=== PATIENT | female | born 1950 | race Native Hawaiian/Other Pacific Islander ===

== ENCOUNTER 2024-04-17 02:58 | Inpatient (IN) | payer MEDICARE ==
--- NOTE | 2024-04-17 04:05 | ED ---
General Adult HPI - General Chief complaint: Dizziness Stated complaint: Dizziness Time Seen by Provider: 04/17/24 03:05 Source: patient, RN notes reviewed, old records reviewed Mode of arrival: EMS Limitations: no limitations - History of Present Illness Initial comments: 73-year-old female presenting with worsening lightheadedness, gait instability. Patient states this has been an ongoing symptom for many months and she has received workup at [facility]. She states that there was no specific cause identified. She states that her symptoms are worsening and she is unsteady on her feet and unable to current to live in her current living situation. She currently lives with her brother and states that he is not well himself. She denies fever. Denies chest pain. Denies vomiting. Denies focal numbness or weakness. Denies headache. - Related Data Home Medications Medication Instructions Recorded Confirmed Lisinopril-Hctz 20-25 mg 25 mg PO DAILY 11/26/13 12/02/16 [Zestoretic 20-25] Metoprolol Succinate [Toprol XL] 50 mg PO DAILY 11/26/13 12/02/16 amLODIPine BESYLATE [Norvasc] 5 mg PO DAILY 11/26/13 12/02/16 glipiZIDE [Glucotrol XL] 5 mg PO DAILY 11/26/13 12/02/16 metFORMIN HCL [Glucophage] 500 mg PO DAILY 11/26/13 12/02/16 predniSONE 5 mg PO DAILY 11/26/13 12/02/16 Omeprazole [PriLOSEC] 20 mg PO AC-BRKFST 06/04/14 12/02/16 Allergies Allergy/AdvReac Type Severity Reaction Status Date / Time Penicillins Allergy Rash/Hives Verified 12/02/16 14:11 Review of Systems ROS Statement: Those systems with pertinent positive or pertinent negative responses have been documented in the HPI. ROS Other: All systems not noted in ROS Statement are negative. Past Medical History Past Medical History: Diabetes Mellitus, Hypertension, Supraventricular Tachycardia (SVT) Additional Past Medical History / Comment(s): L and R breast biopsy, dentures, arthritis, pain legs and hands History of Any Multi-Drug Resistant Organisms: None Reported Past Surgical History: Cholecystectomy Additional Past Surgical History / Comment(s): L and R foot surgery Past Anesthesia/Blood Transfusion Reactions: No Reported Reaction Past Psychological History: No Psychological Hx Reported Past Alcohol Use History: Occasional Past Drug Use History: None Reported General Exam Limitations: no limitations General appearance: alert, in no apparent distress Head exam: Present: atraumatic, normocephalic Eye exam: Present: normal appearance, PERRL ENT exam: Present: mucous membranes dry Neck exam: Present: normal inspection. Absent: tenderness, meningismus Respiratory exam: Present: normal lung sounds bilaterally. Absent: respiratory distress, wheezes Cardiovascular Exam: Present: regular rate, normal rhythm GI/Abdominal exam: Present: soft. Absent: distended, tenderness Extremities exam: Present: normal inspection, normal capillary refill Neurological exam: Present: alert, oriented X3, CN II-XII intact. Absent: motor sensory deficit Skin exam: Present: warm, dry, intact. Absent: cyanosis, diaphoretic Course Vital Signs 04/17/24 03:11 Temperature 97.7 F Pulse Rate 79 Respiratory 20 Rate Blood Pressure 157/69 O2 Sat by Pulse 99 Oximetry Medical Decision Making - Medical Decision Making Was pt. sent in by a medical professional or institution ([facility]OTT Ma, [employer] SUPERVISOR, urgent care, hospital, or retirement...) When possible be specific @ -No Did you speak to anyone other than the patient for history (EMS, parent, family, police, friend...)? What history was obtained from this source @ -No Did you review nursing and triage notes (agree or disagree)? Why? @ -I reviewed and agree with nursing and triage notes Were old charts reviewed (outside hosp., previous admission, EMS record, old EKG, old radiological studies, urgent care reports/EKG's, retirement records)? Report findings @ -No old charts were reviewed Differential Syncope: Valvular disease, hypertrophic cardiomyopathy, pulmonary embolism, tamponade, tachycardia, bradycardia, VA, hypovolemia, hemorrhage, dissection, anemia, intracranial hemorrhage, seizure, hypoglycemia, carbon monoxide poisoning, this is not meant to be an all-inclusive list. EKG interpreted by me (3pts min.). @ -Sinus rhythm with PVC rate of 94, KY interval 148, QRS duration 69, QTc [address] segment elevation. X-rays interpreted by me (1pt min.). @ -None done CT interpreted by me (1pt min.). @ -None done U/S interpreted by me (1pt. min.). @ -None done What testing was considered but not performed or refused? (CT, X-rays, U/S, labs)? Why? @ -None What meds were considered but not given or refused? Why? @ -None Did you discuss the management of the patient with other professionals (professionals i.e. , PA, MOLD YARN SUPERVISOR, lab, RT, psych nurse, social group worker, retrimmer, teacher, retail loss prevention officer, case making machine operator)? Give summary @[facility] Was smoking cessation discussed for >3mins.? @ -No Was critical care preformed (if so, how long)? @ -No Were there social determinants of health that impacted care today? How? (Homelessness, low income, unemployed, alcoholism, drug addiction, transportation, low edu. Level, literacy, decrease access to med. care, [facility], rehab)? @ -No Was there de-escalation of care discussed even if they declined (Discuss DNR or withdrawal of care, Hospice)? DNR status @ -No What co-morbidities impacted this encounter? (DM, HTN, Smoking, COPD, CAD, Cancer, CVA, ARF, Chemo, Hep., AIDS, mental health diagnosis, sleep apnea, morbid obesity)? @ -None Was patient admitted / discharged? Hospital course, mention meds given and route, prescriptions, significant lab abnormalities, going to OR and other pertinent info. @ -73-year-old female currently living alone with persistent dizziness, gait instability, states she feels like she is going to pass out. She is in sinus rhythm with stable vitals. She has normal CBC and normal CMP, negative troponin, urinalysis is pending. Patient states she cannot be home in her current living situation she is requesting admission. Patient is admitted for further evaluation. Case discussed with Raheem alatorre for [facility]. Undiagnosed new problem with uncertain prognosis? @ -No Drug Therapy requiring intensive monitoring for toxicity (Heparin, Nitro, Insulin, Cardizem)? @ -No Were any procedures done? @ -No Diagnosis/symptom? @ -Near syncope, gait instability Acute, or Chronic, or Acute on Chronic? @ -Default Uncomplicated (without systemic symptoms) or Complicated (systemic symptoms)? @ -Default Side effects of treatment? @ -No Exacerbation, Progression, or Severe Exacerbation? @ -No Poses a threat to life or bodily function? How? (Chest pain, USA, VA, pneumonia, PE, COPD, DKA, ARF, appy, cholecystitis, CVA, Diverticulitis, Homicidal, Suicidal, threat to staff... and all critical care pts) @ -No - Lab Data Result diagrams: 04/17/24 04:23 04/17/24 04:23 Lab Results 04/17/24 04/17/24 04/17/24 Range/Units 04:23 04:23 04:23 WBC 6.5 (3.8-10.6) k/uL RBC 5.30 (3.80-5.40) m/uL Hgb 11.6 (11.4-16.0) gm/dL Hct 38.9 (34.0-46.0) % MCV 73.4 L (80.0-100.0) fL MCH 21.9 L (25.0-35.0) pg MCHC 29.9 L (31.0-37.0) g/dL RDW 15.9 H (11.5-15.5) % Plt Count 332 (150-450) k/uL MPV 6.9 Neutrophils % 65 % Lymphocytes % 22 % Monocytes % 10 % Eosinophils % 1 % Basophils % 1 % Neutrophils # 4.2 (1.3-7.7) k/uL Lymphocytes # 1.4 (1.0-4.8) k/uL Monocytes # 0.6 (0-1.0) k/uL Eosinophils # 0.1 (0-0.7) k/uL Basophils # 0.0 (0-0.2) k/uL Hypochromasia Marked Microcytosis Slight PT 10.1 (10.0-12.5) sec INR 0.9 (<1.2) APTT 24.6 (22.0-30.0) sec Sodium 135 L (137-145) mmol/L Potassium 3.5 (3.5-5.1) mmol/L Chloride 102 (98-107) mmol/L Carbon Dioxide 24 (22-30) mmol/L Anion Gap 9 mmol/L BUN 21 H (7-17) mg/dL Creatinine 0.79 (0.52-1.04) mg/dL Est GFR (CKD-EPI)AfAm 85 (>60 ml/min/1.73 sqM) Est GFR (CKD-EPI)NonAf 74 (>60 ml/min/1.73 sqM) Glucose 90 (74-99) mg/dL Calcium 9.9 (8.4-10.2) mg/dL Magnesium 1.7 (1.6-2.3) mg/dL Total Bilirubin 0.6 (0.2-1.3) mg/dL AST 42 H (14-36) U/L ALT 36 H (4-34) U/L Alkaline Phosphatase 58 (38-126) U/L Troponin I (0.000-0.034) ng/mL Total Protein 7.5 (6.3-8.2) g/dL Albumin 5.0 (3.5-5.0) g/dL 04/17/24 Range/Units 04:23 WBC (3.8-10.6) k/uL RBC (3.80-5.40) m/uL Hgb (11.4-16.0) gm/dL Hct (34.0-46.0) % MCV (80.0-100.0) fL MCH (25.0-35.0) pg MCHC (31.0-37.0) g/dL RDW (11.5-15.5) % Plt Count (150-450) k/uL MPV Neutrophils % % Lymphocytes % % Monocytes % % Eosinophils % % Basophils % % Neutrophils # (1.3-7.7) k/uL Lymphocytes # (1.0-4.8) k/uL Monocytes # (0-1.0) k/uL Eosinophils # (0-0.7) k/uL Basophils # (0-0.2) k/uL Hypochromasia Microcytosis PT (10.0-12.5) sec INR (<1.2) APTT (22.0-30.0) sec Sodium (137-145) mmol/L Potassium (3.5-5.1) mmol/L Chloride (98-107) mmol/L Carbon Dioxide (22-30) mmol/L Anion Gap mmol/L BUN (7-17) mg/dL Creatinine (0.52-1.04) mg/dL Est GFR (CKD-EPI)AfAm (>60 ml/min/1.73 sqM) Est GFR (CKD-EPI)NonAf (>60 ml/min/1.73 sqM) Glucose (74-99) mg/dL Calcium (8.4-10.2) mg/dL Magnesium (1.6-2.3) mg/dL Total Bilirubin (0.2-1.3) mg/dL AST (14-36) U/L ALT (4-34) U/L Alkaline Phosphatase (38-126) U/L Troponin I <0.012 (0.000-0.034) ng/mL Total Protein (6.3-8.2) g/dL Albumin (3.5-5.0) g/dL Disposition Clinical Impression: Near syncope, Gait instability Disposition: ADMITTED IP TO THIS HOSP Condition: Stable Is patient prescribed a controlled substance at d/c from ED?: No Referrals: Solitario Lewis MD [Primary Care Provider] - 1-2 days Time of Disposition: 05:50
[2024-04-17 05:08] LABS: Basophils % (A) 1 %; Eosinophils # (A) 0.1 k/uL (0-0.7); Eosinophils % (A) 1 %; HCT 38.9 % (34.0-46.0); HGB 11.6 gm/dL (11.4-16.0); Hypochromasia Marked; Lymphocytes # (A) 1.4 k/uL (1.0-4.8); Lymphocytes % (A) 22 %; MCH 21.9 pg (25.0-35.0); MCHC 29.9 g/dL (31.0-37.0); MCV 73.4 fL (80.0-100.0); Mean Platelet Volume 6.9; Microcytosis Slight; Monocytes # (A) 0.6 k/uL (0-1.0); Monocytes % (A) 10 %; Neutrophils # (A) 4.2 k/uL (1.3-7.7); Neutrophils % (A) 65 %; Platelet Count 332 k/uL (150-450); RDW 15.9 % (11.5-15.5); WBC 6.5 k/uL (3.8-10.6)
[2024-04-17 05:17] LABS: ALT 36 U/L (4-34); AST 42 U/L (14-36); African American GFR (CKD) 85 (>60 ml/min/1.73 sqM); Alkaline Phosphatase 58 U/L (38-126); Anion Gap 9 mmol/L; Blood Urea Nitrogen 21 mg/dL (7-17); Calcium 9.9 mg/dL (8.4-10.2); Carbon Dioxide 24 mmol/L (22-30); Chloride 102 mmol/L (98-107); Glucose 90 mg/dL (74-99); Magnesium 1.7 mg/dL (1.6-2.3); Non-African American GFR(CKD) 74 (>60 ml/min/1.73 sqM); Potassium 3.5 mmol/L (3.5-5.1); Sodium 135 mmol/L (137-145); Total Bilirubin 0.6 mg/dL (0.2-1.3); Total Protein 7.5 g/dL (6.3-8.2)
[2024-04-17 05:25] LABS: INR 0.9 (<1.2); Partial Thromboplastin Time 24.6 sec (22.0-30.0); Prothrombin Time 10.1 sec (10.0-12.5)
[2024-04-17] MEDS ORDERED: ACETAMINOPHEN TAB 325 MG TAB PO PRN (05:45)
[2024-04-17] MEDS ORDERED: NALOXONE 0.4 MG/ML 1 ML VIAL IV PRN (05:45)
[2024-04-17] MEDS: SODIUM CHLORIDE 0.9% 1,000 ML IV SCH (06:49)
[2024-04-17] MEDS: SODIUM CHLORIDE 0.9% 500 ML 500 ML IV ONE (06:50)
[2024-04-17] MEDS: MECLIZINE 12.5 MG TAB PO STA (06:51)
[2024-04-17 07:10] LABS: Amorphous Sediment,Urine Rare /hpf; Appearance,Urine Clear (Clear); Bacteria,Urine Rare /hpf; Bilirubin,Urine Negative (Negative); Blood,Urine Trace (Negative); Color,Urine Colorless; Glucose,Urine (UA) Negative (Negative); Hyaline Casts,Urine 1 /lpf (0-2); Ketones,Urine Negative (Negative); Leukocyte Esterase,Urine Trace (Negative); Mucus,Urine Rare /hpf; Nitrite,Urine Negative (Negative); Protein,Urine Negative (Negative); RBC,Urine 6 /hpf (0-5); Specific Gravity,Urine 1.009 (1.001-1.035); Squamous Epithelial Cell,Urine 1 /hpf (0-4); Urobilinogen,Urine <2.0 mg/dL (<2.0); WBC,Urine 2 /hpf (0-5)
[2024-04-17] MEDS ORDERED: DEXTROSE 50% SYRINGE 50 ML IVP PRN ×2 (09:40)
[2024-04-17] MEDS: amLODIPine 10 MG TAB PO SCH (10:10)
[2024-04-17 10:22] LABS: Glucose,Whole Blood 67 mg/dL (70-110)
[2024-04-17 12:32] LABS: Glucose,Whole Blood 96 mg/dL (70-110)
[2024-04-17] MEDS: INSULIN ASPART (NovoLOG) 100 UNIT/ML VIAL SQ SCH (12:43)
[2024-04-17] MEDS ORDERED: IOPAMIDOL CONTRAST (ORAL USE) VIAL PO PRN (13:46)
--- NOTE | 2024-04-17 14:08 | XR ---
EXAMINATION TYPE: XR chest 1V portable DATE OF EXAM: 04/17/2024 2:02 PM CLINICAL INDICATION: Female, 73 years old with history of chf; COMPARISON: None TECHNIQUE: XR chest 1V portable Frontal view of the chest. FINDINGS: Lungs/Pleura: There is no evidence of pleural effusion, focal consolidation, or pneumothorax. Pulmonary vascularity: Unremarkable. Heart/mediastinum: Cardiomediastinal silhouette is unremarkable. Musculoskeletal: Degenerative changes of the shoulder joints. IMPRESSION: No acute cardiopulmonary disease/process. [facility], , 04/17/2024 2:05 PM
--- NOTE | 2024-04-17 15:56 | US ---
EXAMINATION TYPE: US carotid duplex BILAT DATE OF EXAM: 04/17/2024 COMPARISON: NONE CLINICAL INDICATION: Female, 73 years old with history of syncope; Syncope per order. Hypertension, p rior smoker, diabetes. TECHNIQUE: Carotid duplex ultrasound examination. Indirect Doppler criteria was utilized. FINDINGS: EXAM MEASUREMENTS: RIGHT: Peak Systolic Velocity (PSV) cm/sec ----- Right CCA: 69.1 ----- Right ICA: 108.2 ----- Right ECA: 65.8 ICA/CCA ratio: 1.6 RIGHT: End Diastole cm/sec ----- Right CCA: 10.9 ----- Right ICA: 28.0 ----- Right ECA: 0.0 LEFT: Peak Systolic Velocity (PSV) cm/sec ----- Left CCA: 94.1 ----- Left ICA: 102.9 ----- Left ECA: 74.6 ICA/CCA ratio: 1.1 LEFT: End Diastole cm/sec ----- Left CCA: 14.9 ----- Left ICA: 24.8 ----- Left ECA: 0.0 VERTEBRALS (direction of flow): Right Vertebral: Unable to visualize Left Vertebral: Antegrade Rhythm: Normal DIRECTOR OF STRATEGIC INITIATIVES NOTES: *Intimal thickening seen. Some plaque seen within bilateral bulbs. IMPRESSION: 1. Scattered areas of intimal thickening without significant flow-limiting stenosis. Criteria for Assigning % of Stenosis / Diameter reduction (Estimation based on the indirect measurements of the internal carotid artery velocities (ICA PSV). 1. Normal (no stenosis)=ICA PSV < 125 cm/s: ratio < 2.0: ICA EDV<40 cm/s. 2. Less than 50% stenosis=ICA PSV < 125 cm/s: ratio < 2.0: ICA EDV<40 cm/s. 3. 50 to 69% stenosis=ICA PSV of 125 to 230 cm/s: ration 2.0 ? 4.0: ICA EDV 40-100 cm/s. 4. Greater than 70% stenosis to near occlusion= ICA PSV > 230 cm/s: ratio > 4.0: ICA EDV > 100 cm/s. 5. Near occlusion= ICA PSV velocities may be low or undetectable: variable ratio and ICA EDV. 6. Total occlusion=unable to detect flow. [facility], , 04/17/2024 3:53 PM
[2024-04-17] MEDS: predniSONE 5 MG TAB PO SCH (16:07)
[2024-04-17] MEDS: LEVOFLOXACIN 500 MG TAB PO SCH (16:07)
--- NOTE | 2024-04-17 16:13 | CT ---
EXAMINATION TYPE: CT brain wo con DATE OF EXAM: 04/17/2024 COMPARISON: None HISTORY: Stroke CT DLP: 1154.[address] of the brain was performed. The ventricles, basal cisterns and sulci overlying the cerebral convexities demonstrate mild enlargem ent. There is no evidence for intracranial hemorrhage or sulcal effacement. There is decreased attenuation about the periventricular white matter and deep white matter of both c erebral hemispheres, compatible with chronic small vessel ischemia. Differential diagnosis does inclu de demyelination. No mass effects are seen.No midline shift. Osseous calvarium is intact. If symptoms persist consider MRI. IMPRESSION: 1. Age related atrophic and chronic small vessel ischemic change without acute intracranial process s een at this time. [facility], , 04/17/2024 4:10 PM
[2024-04-17 16:14] LABS: Creatine Kinase 171 U/L (30-135)
--- NOTE | 2024-04-17 16:18 | CT ---
EXAMINATION TYPE: CT ChestAbdPelvis wo con DATE OF EXAM: 04/17/2024 COMPARISON: None HISTORY: Weakness, weight loss CT DLP: 532.6mGycm Unenhanced CT of the Chest, Abdomen and Pelvis Unenhanced CT of the chest ,abdomen and pelvis is performed. The lack of intravenous contrast limits evaluation of the solid and hollow viscera. Oral contrast: Yes CT Chest: LUNGS: The lungs are clear and free of infiltrate or atelectasis. No pulmonary nodule or mass is det ected. No pleural effusion or CT evidence of interstitial lung disease. MEDIASTINUM: Small pericardial effusion measuring 9 mm AP dimension. Thoracic aorta is of normal fabiola iber. The heart is not enlarged. No evidence for mediastinal mass or adenopathy. HILAR STRUCTURES: No evidence for mass. No hilar adenopathy is appreciated. OTHER: No significant abnormality. CONTRAST CT ABDOMEN AND PELVIS: LIVER/GB: The gallbladder is surgically absent. No space occupying hepatic lesion. Biliary tree is of normal caliber. PANCREAS: No inflammation. No distinct mass. SPLEEN: No splenic enlargement. No lesion seen. ADRENALS: No nodule. No thickening. KIDNEYS/BLADDER: No hydronephrosis. No nephrolithiasis. No disctinct renal mass. BOWEL: Nonspecific wall thickening right hemicolon could reflect nonspecific colitis. The appendix is not clearly visualized. Otherwise Normal bowel caliber. No inflammation. GENITAL ORGANS: No gross abnormality. LYMPH NODES: No greater than 1cm abdominal or pelvic lymph nodes areappreciated. AORTA: No significant abnormality. OSSEOUS STRUCTURES: No significant abnormality is seen. OTHER: No significant additional abnormality is seen. IMPRESSION: 1. Nonspecific wall thickening right hemicolon could reflect nonspecific colitis. [facility], , 04/17/2024 4:15 PM
[2024-04-17 16:42] LABS: Glucose,Whole Blood 82 mg/dL (70-110)
[2024-04-17] MEDS ORDERED: metFORMIN 500 MG TAB PO SCH (17:30)
[2024-04-17 21:30] LABS: Glucose,Whole Blood 145 mg/dL (70-110)
[2024-04-17] MEDS: CALCIUM CARBONATE 500 MG CHEWABLE PO PRN (21:51)
[2024-04-18 05:39] LABS: Glucose,Whole Blood 113 mg/dL (70-110)
[2024-04-18 06:35] LABS: Anisocytosis Slight; Basophils % (A) 0 %; Eosinophils # (A) 0.1 k/uL (0-0.7); Eosinophils % (A) 1 %; HCT 35.4 % (34.0-46.0); HGB 10.7 gm/dL (11.4-16.0); Hypochromasia Marked; Lymphocytes # (A) 1.4 k/uL (1.0-4.8); Lymphocytes % (A) 30 %; MCH 22.7 pg (25.0-35.0); MCHC 30.3 g/dL (31.0-37.0); MCV 74.7 fL (80.0-100.0); Microcytosis Slight; Monocytes # (A) 0.4 k/uL (0-1.0); Monocytes % (A) 9 %; Neutrophils # (A) 2.6 k/uL (1.3-7.7); Neutrophils % (A) 56 %; Platelet Count 273 k/uL (150-450); RBC 4.74 m/uL (3.80-5.40); WBC 4.7 k/uL (3.8-10.6)
[2024-04-18 06:47] LABS: ALT 24 U/L (4-34); AST 29 U/L (14-36); African American GFR (CKD) >90 (>60 ml/min/1.73 sqM); Albumin 3.5 g/dL (3.5-5.0); Alkaline Phosphatase 46 U/L (38-126); Anion Gap 5 mmol/L; Blood Urea Nitrogen 13 mg/dL (7-17); Calcium 9.4 mg/dL (8.4-10.2); Carbon Dioxide 28 mmol/L (22-30); Chloride 103 mmol/L (98-107); Glucose 94 mg/dL (74-99); Non-African American GFR(CKD) 81 (>60 ml/min/1.73 sqM); Potassium 3.4 mmol/L (3.5-5.1); Sodium 136 mmol/L (137-145); Total Bilirubin 0.5 mg/dL (0.2-1.3); Total Protein 5.7 g/dL (6.3-8.2)
[2024-04-18] MEDS: lisinopriL 20 MG TAB PO SCH (08:08)
[2024-04-18] MEDS: PANTOPRAZOLE 40 MG TABLET PO SCH (08:08)
[2024-04-18 11:23] LABS: Glucose,Whole Blood 119 mg/dL (70-110)
[2024-04-18] MEDS: LEVOFLOXACIN 250 MG TAB PO SCH (13:22)
[2024-04-18 16:32] LABS: Glucose,Whole Blood 131 mg/dL (70-110)
--- NOTE | 2024-04-18 16:47 | P.CNNES ---
History of Present Illness Consult date: 04/18/24 Requesting physician: Evelyn Hugo Reason for Consult: weakness History of Present Illness: This is a 73-year-old woman with history of diabetes mellitus, hypertension, rheumatoid arthritis states she is having ongoing dizziness and generalized weakness for prolonged period time. She states she is having dizziness for at least 1 year or could be more and she feels dizzy mostly with standing up. She could not describe her dizziness but just feels dizzy. Per the ED team she notified them that she is having worsening lightheadedness. She also feels she is having difficulty walking for the past 2 to 3-month. It seems that she has chronic diabetes mellitus for at least 25 years she has calluses on her feet and she feels short of breath when she is walking. She usually walks with a walker. She denies any focal weakness. Denies any neck pain. Denies any ringing in the ears. Denies any visual disturbance. Denies any falls. Denies any seizures or strokes in the past. She states that she lives with her brother but it seems her brother cannot take care of her and she needs placement. Stated that she had MRI of the brain at outside facility for her dizziness lightheadedness in December 2023 and was told unremarkable. She stated that she followed up with a neurologist as an outpatient but could not tell me the name and they did not know the source of her dizziness. Some of the workup during this hospital visit consisted of: Orthostatic vitals as supine blood pressure is 154/63 heart rate of 70, sitting is 159/63 with a heart rate of 90 and standing is 138/62 with a heart rate of 103. There is a drop of 20 systolic blood pressure from sitting to standing. Vitamin B12 is 457 Serum folate is 16.20 Hemoglobin A1c is 6.7 TSH is 1.040 Ammonia is less than 9 [address] Level is [address] head: Reported as age-related atrophy and chronic small vessel ischemic changes without acute intracranial process seen at this time. I personally reviewed the CT and I agree there is no acute or subacute ischemic process Carotid duplex is reported as scattered area of intimal thickening without significant flow-limiting stenosis Review of Systems Limited but positive and negative as per HPI. Past Medical History Past Medical History: Diabetes Mellitus, Hypertension, Supraventricular Tachycardia (SVT) Additional Past Medical History / Comment(s): L and R breast biopsy, dentures, arthritis, pain legs and hands History of Any Multi-Drug Resistant Organisms: None Reported Past Surgical History: Cholecystectomy Additional Past Surgical History / Comment(s): L and R foot surgery Past Anesthesia/Blood Transfusion Reactions: No Reported Reaction Past Psychological History: No Psychological Hx Reported Smoking Status: Former smoker Past Alcohol Use History: Occasional Past Drug Use History: None Reported Medications and Allergies Home Medications Medication Instructions Recorded Confirmed Type glipiZIDE [Glucotrol XL] 5 mg PO DAILY 11/26/13 04/17/24 History metFORMIN HCL [Glucophage] 500 mg PO AC-SUPPER 11/26/13 04/17/24 History predniSONE 5 mg PO DAILY 11/26/13 04/17/24 History Levofloxacin [Levaquin] 500 mg PO DAILY 04/17/24 04/17/24 History amLODIPine [Norvasc] 10 mg PO DAILY 04/17/24 04/17/24 History lisinopriL [Zestril] 20 mg PO DAILY 04/17/24 04/17/24 History Allergies Allergy/AdvReac Type Severity Reaction Status Date / Time Penicillins Allergy Rash/Hives Verified 04/17/24 09:03 Physical Examination - Vital Signs Vital Signs: Vital Signs Temp Pulse Pulse Pulse Pulse Resp BP 04/18/24 14:44 98.2 F 90 103 H 70 16 159/63 04/18/24 13:52 18 04/18/24 08:03 98.1 F 96 16 04/18/24 08:00 18 04/18/24 05:52 98.1 F 72 04/18/24 02:00 98.1 F 72 04/17/24 20:14 18 04/17/24 20:00 98.0 F 74 20 BP BP BP Pulse Ox 04/18/24 14:44 138/62 154/63 99 04/18/24 13:52 04/18/24 08:03 169/75 98 04/18/24 08:00 04/18/24 05:52 126/73 04/18/24 02:00 126/73 04/17/24 20:14 04/17/24 20:00 170/74 99 Intake and Output 04/18/24 04/18/24 04/18/24 06:59 14:59 22:59 Intake Total 236 Output Total 200 Balance -200 236 Intake: Oral 236 Output: Urine 200 Other: Voiding Method Bedside Commode # Voids 1 GENERAL: The patient is lying in bed and is not in acute distress. Musculoskeletal: Moderate to significant rheumatoid arthritis joint deformity in the hands and feet. Patient does have calluses in the bottom of the feet. NEUROLOGICAL: Higher mental function: The patient is awake, alert, oriented to self, place and time. Patient is following commands. No aphasia and no neglect. Cranial nerves: The pupils are round, equal and reactive to light and accommodation. Visual walsh are full to confrontation throughout. Extraocular movement is intact no nystagmus is noted. Facial sensation is normal to touch throughout. The facial strength is normal throughout. Hearing is moderately decreased bilaterally to hand rub. Tongue is midline and moved [id number] without any difficulty. No dysarthria is noted. Shoulder shrug is normal bilaterally. Motor: Gait is limited since taking small step and had to be assisted since usually has a walker. The strength is limited in individual muscle strength because of her cooperation but has at least 5- throughout. Normal tone and bulk. Cerebellum: Normal finger to nose bilaterally. Sensation: Sensation is normal to touch throughout. Reflexes (right/left): 2+ throughout except ankles are 1+. Plantars are mute bilaterally. Results - Laboratory Findings CBC and BMP: 04/18/24 05:40 04/18/24 05:40 Abnormal Lab Findings: Abnormal Labs 04/17/24 04/17/24 04/17/24 04:23 04:23 05:23 Hgb MCV 73.4 L MCH 21.9 L MCHC 29.9 L RDW 15.9 H Sodium 135 L Potassium BUN 21 H POC Glucose (mg/dL) Hemoglobin A1c AST 42 H ALT 36 H Creatine Kinase Total Protein Urine Blood Trace H Ur Leukocyte Esterase Trace H Urine RBC 6 H Amorphous Sediment Rare H Urine Bacteria Rare H Urine Mucus Rare H 04/17/24 04/17/24 04/17/24 10:20 15:12 21:28 Hgb MCV MCH MCHC RDW Sodium Potassium BUN POC Glucose (mg/dL) 67 L 145 H Hemoglobin A1c AST ALT Creatine Kinase 171 H Total Protein Urine Blood Ur Leukocyte Esterase Urine RBC Amorphous Sediment Urine Bacteria Urine Mucus 04/18/24 04/18/24 04/18/24 05:34 05:40 05:40 Hgb MCV MCH MCHC RDW Sodium 136 L Potassium 3.4 L BUN POC Glucose (mg/dL) 113 H Hemoglobin A1c 6.7 H AST ALT Creatine Kinase Total Protein 5.7 L Urine Blood Ur Leukocyte Esterase Urine RBC Amorphous Sediment Urine Bacteria Urine Mucus 04/18/24 04/18/24 04/18/24 05:40 11:21 16:30 Hgb 10.7 L MCV 74.7 L MCH 22.7 L MCHC 30.3 L RDW 16.0 H Sodium Potassium BUN POC Glucose (mg/dL) 119 H 131 H Hemoglobin A1c AST ALT Creatine Kinase Total Protein Urine Blood Ur Leukocyte Esterase Urine RBC Amorphous Sediment Urine Bacteria Urine Mucus Assessment and Plan Assessment: This is a 73-year-old woman with chronic ongoing diabetes mellitus for 25 years, rheumatoid arthritis, hypertension who presents because of dizzine ss/lightheadedness for at least 1 year, generalized weakness for at least 2 to 3-month and she stated she had MRI of the brain in December 2023 was unremarkable and followed up with a neurologist as an outpatient and unknown reason for her dizziness. She lives with her brother and needs placement. She usually uses a walker Patient symptoms of lightheadedness/dizziness with generalized weakness: Unknown exact etiology but I would state multifactorial due to her chronic diabetes mellitus for at least 25 years in addition to rheumatoid arthritis likely she has peripheral neuropathy because of her chronic ongoing diabetes mellitus. Her orthostatic vitals is positive going from a sitting to standing. Ongoing chronic diabetes mellitus Hypertension Rheumatoid arthritis Plan: I ordered MRI of the brain without. 2D echo is ordered and is pending I recommend a repeat orthostatic vitals and if it continues to be positive then will defer the management to the primary team and consider cardiology consultation And OT are consulted Recommend ENT evaluation as an outpatient Will defer the rest of the medical management to primary and other specialist Discussed with the patient and her nurses at bedside Thank you for the consult Time with Patient: Greater than 30
[2024-04-18 20:21] LABS: Glucose,Whole Blood 148 mg/dL (70-110)
[2024-04-19 06:21] LABS: Glucose,Whole Blood 108 mg/dL (70-110)
[2024-04-19 06:42] LABS: Anisocytosis Slight; Basophils % (A) 0 %; Eosinophils # (A) 0.1 k/uL (0-0.7); Eosinophils % (A) 3 %; HCT 39.6 % (34.0-46.0); HGB 11.5 gm/dL (11.4-16.0); Hypochromasia Marked; Lymphocytes # (A) 1.3 k/uL (1.0-4.8); Lymphocytes % (A) 27 %; MCHC 29.1 g/dL (31.0-37.0); MCV 75.6 fL (80.0-100.0); Mean Platelet Volume 6.3; Microcytosis Slight; Monocytes # (A) 0.4 k/uL (0-1.0); Monocytes % (A) 9 %; Neutrophils # (A) 2.9 k/uL (1.3-7.7); Neutrophils % (A) 58 %; Platelet Count 285 k/uL (150-450); RBC 5.24 m/uL (3.80-5.40); RDW 16.1 % (11.5-15.5); WBC 4.9 k/uL (3.8-10.6)
[2024-04-19 07:03] LABS: African American GFR (CKD) >90 (>60 ml/min/1.73 sqM); Anion Gap 4 mmol/L; Blood Urea Nitrogen 8 mg/dL (7-17); Calcium 9.1 mg/dL (8.4-10.2); Carbon Dioxide 29 mmol/L (22-30); Chloride 105 mmol/L (98-107); Glucose 115 mg/dL (74-99); Non-African American GFR(CKD) 88 (>60 ml/min/1.73 sqM); Potassium 3.4 mmol/L (3.5-5.1); Sodium 138 mmol/L (137-145)
[2024-04-19] MEDS: POTASSIUM CHLORIDE ER 10 MEQ TAB.ER.PRT PO STA (10:23)
--- NOTE | 2024-04-19 12:57 | P.PN ---
Subjective Progress Note Date: 04/19/24 This patient is evaluated today in follow-up resting in the bed. She is awake alert oriented. Patient is still pending an echocardiogram and brain MRI. She is not reporting any dizziness or lightheadedness today is reporting continued difficulty ambulating. Physical therapy has evaluated the patient recommending subacute rehab. She does report that her PCP had put her on antibiotics for what she thought was a foot infection points to an area in between her first and second toe on her left foot which appears to be fungal in nature. Her blood work today reveals a potassium level of 3.4. Orthostatic blood pressures not been repeated today. Review of Systems Constitutional: Denied any fatigue denied any fever. Cardio vascular: denied any chest pain, palpitations Gastrointestinal: denied any nausea, vomiting, diarrhea Pulmonary: Denied any shortness of breath cough Neurologic denied any new focal deficits All inpatient medications were reviewed and appropriate changes in these medications as dictated in the interval history and assessment and plan. PHYSICAL EXAMINATION: GENERAL: The patient is alert and oriented x3, not in any acute distress. Well developed, well nourished. HEENT: Pupils are round and equally reacting to light. EOMI. No scleral icterus. No conjunctival pallor. Normocephalic, atraumatic. No pharyngeal erythema. No thyromegaly. CARDIOVASCULAR: S1 and S2 present. No murmurs, rubs, or gallops. PULMONARY: Chest is clear to auscultation, no wheezing or crackles. ABDOMEN: Soft, nontender, nondistended, normoactive bowel sounds. No palpable organomegaly. MUSCULOSKELETAL: No joint swelling or deformity. EXTREMITIES: No cyanosis, clubbing, or pedal edema. NEUROLOGICAL: Gross neurological examination did not reveal any focal deficits. SKIN: No rashes. Assessment and plan Near syncope likely dehydrational with positive orthostatics Gait dysfunction and chronic medical debility Hypovolemic hyponatremia improving with IV fluids Mild acute kidney injury, prerenal secondary to dehydration; BUN of 21 on admission has since normalized with IV fluids Hypokalemia Diabetes mellitus type II hemoglobin A1c of 6.7; hypoglycemic on admission Diabetic neuropathy Hypertension maintained on lisinopril and amlodipine Supraventricular tachycardia; hx currently in normal sinus rhythm Polycystic Kidney Disease Rheumatoid arthritis maintained on daily prednisone GI prophlyaxis DVT prophylaxis NO CODE Plan Continue normal saline at 75 mls/hr Continue accuchecks ACHS and sliding scale insulin Glipizide and metformin are on hold The patients dizziness and difficulty with ambulation can be multifactorial with concern for hypoglycemia due to the oral diabetic medications, decreased oral intake and blood pressure medications causing positive orthostatic changes when going from sitting to standing. Continue to monitor orthostatic vitals once a shift. Continue to hold the oral diabetic medications. Monitor renal function and electrolytes. Stroke work up in progress although does not appear likely at this time. Brain MRI and Echocardiogram are pending. Physical therapy is recommending subacute rehab and insurance authorization will need to be submitted. The impression and plan of care has been dictated by Jessie Juárez Nurse Practitioner as directed. Dr. Annika MD I have performed a history and physical examination and medical decision making of this patient, discussed the same with the dictator, and agree with the dictators assessment and plan as written, documented as a scribe. Based on total visit time, I have performed more than 50% of this visit. Objective - Vital Signs Vital signs: Vital Signs Temp 98.5 F 04/19/24 07:00 Pulse 93 04/19/24 09:03 Resp 17 04/19/24 09:03 BP 151/77 04/19/24 07:00 Pulse Ox 93 L 04/19/24 07:00 FiO2 Intake & Output 04/18/24 04/19/24 04/19/24 18:59 06:59 18:59 Intake Total 1434 Balance 1434 Intake: Intake, IV Titration 600 Amount Sodium Chloride 0.9% 1, 600 000 ml @ 75 mls/hr IV . [id number] [facility] Rx#:[id number] Oral 834 Other: Voiding Method Bedside Commode Bedside Commode Bedside Commode # Voids 1 1 - Labs CBC & Chem 7: 04/19/24 05:59 04/19/24 05:59 Labs: Abnormal Lab Results - Last 24 Hours (Table) 04/18/24 04/18/24 04/19/24 Range/Units 16:30 20:20 05:59 MCV 75.6 L (80.0-100.0) fL MCH 22.0 L (25.0-35.0) pg MCHC 29.1 L (31.0-37.0) g/dL RDW 16.1 H (11.5-15.5) % Potassium (3.5-5.1) mmol/L Glucose (74-99) mg/dL POC Glucose (mg/dL) 131 H 148 H (70-110) mg/dL 04/19/24 Range/Units 05:59 MCV (80.0-100.0) fL MCH (25.0-35.0) pg MCHC (31.0-37.0) g/dL RDW (11.5-15.5) % Potassium 3.4 L (3.5-5.1) mmol/L Glucose 115 H (74-99) mg/dL POC Glucose (mg/dL) (70-110) mg/dL Assessment and Plan Time with Patient: Less than 30
--- NOTE | 2024-04-19 13:11 | P.PN ---
Subjective Progress Note Date: 04/19/24 I am following-up with patient and she feels about the same. Denies of any new neurological issues. Objective - Vital Signs Vital signs: Vital Signs Temp 98.5 F 04/19/24 07:00 Pulse 93 04/19/24 09:03 Resp 17 04/19/24 09:03 BP 151/77 04/19/24 07:00 Pulse Ox 93 L 04/19/24 07:00 FiO2 Intake & Output 04/18/24 04/19/24 04/19/24 18:59 06:59 18:59 Intake Total 1434 Balance 1434 Intake: Intake, IV Titration 600 Amount Sodium Chloride 0.9% 1, 600 000 ml @ 75 mls/hr IV . [id number] [facility] Rx#:[id number] Oral 834 Other: Voiding Method Bedside Commode Bedside Commode Bedside Commode # Voids 1 1 - Exam GENERAL: The patient is lying in bed and is not in acute distress. Musculoskeletal: Moderate to significant rheumatoid arthritis joint deformity in the hands and feet. Patient does have calluses in the bottom of the feet. NEUROLOGICAL: Higher mental function: The patient is awake, alert, oriented to self, place and time. Patient is following commands. No aphasia and no neglect. Cranial nerves: The pupils are round, equal and reactive to light and accommodation. Visual walsh are full to confrontation throughout. Extraocular movement is intact no nystagmus is noted. Facial sensation is normal to touch throughout. The facial strength is normal throughout. Hearing is moderately decreased bilaterally to hand rub. Tongue is midline and moved [id number] without any difficulty. No dysarthria is noted. Shoulder shrug is normal bilaterally. Motor: The strength is limited in individual muscle strength because of her cooperation but has at least 5- throughout. Normal tone and bulk. Cerebellum: Normal finger to nose bilaterally. Sensation: Sensation is normal to touch throughout. Reflexes (right/left): 2+ throughout except ankles are 1+. Plantars are mute bilaterally. Some of the workup during this hospital visit consisted of: Repeat orthostatic is negative. Vitamin B12 is 457 Serum folate is 16.20 Hemoglobin A1c is 6.7 TSH is 1.040 Ammonia is less than 9 [address] is [address] head: Reported as age-related atrophy and chronic small vessel ischemic changes without acute intracranial process seen at this time. I personally reviewed the CT and I agree there is no acute or subacute ischemic process Carotid duplex is reported as scattered area of intimal thickening without si gnificant flow-limiting stenosis - Labs CBC & Chem 7: 04/19/24 05:59 04/19/24 05:59 Labs: Abnormal Lab Results - Last 24 Hours (Table) 04/18/24 04/18/24 04/19/24 Range/Units 16:30 20:20 05:59 MCV 75.6 L (80.0-100.0) fL MCH 22.0 L (25.0-35.0) pg MCHC 29.1 L (31.0-37.0) g/dL RDW 16.1 H (11.5-15.5) % Potassium (3.5-5.1) mmol/L Glucose (74-99) mg/dL POC Glucose (mg/dL) 131 H 148 H (70-110) mg/dL 04/19/24 Range/Units 05:59 MCV (80.0-100.0) fL MCH (25.0-35.0) pg MCHC (31.0-37.0) g/dL RDW (11.5-15.5) % Potassium 3.4 L (3.5-5.1) mmol/L Glucose 115 H (74-99) mg/dL POC Glucose (mg/dL) (70-110) mg/dL Assessment and Plan Assessment: This is a 73-year-old woman with chronic ongoing diabetes mellitus for 25 years, rheumatoid arthritis, hypertension who presents because of dizziness/lig htheadedness for at least 1 year, generalized weakness for at least 2 to 3-month and she stated she had MRI of the brain in December 2023 was unremarkable and followed up with a neurologist as an outpatient and unknown reason for her dizziness. She lives with her brother and needs placement. She usually uses a walker Patient symptoms of lightheadedness/dizziness with generalized weakness: Unknown exact etiology but I would state multifactorial due to her chronic diabetes mellitus for at least 25 years in addition to rheumatoid arthritis likely she has peripheral neuropathy because of her chronic ongoing diabetes mellitus. Her repeat orthostatic vitals are negative. Ongoing chronic diabetes mellitus Hypertension Rheumatoid arthritis Plan: Pending MRI of the brain without. 2D echo is pending PT and OT are consulted Recommend ENT evaluation as an outpatient Will defer the rest of the medical management to primary and other specialist Time with Patient: Less than 30
[2024-04-19 13:27] LABS: Glucose,Whole Blood 135 mg/dL (70-110)
--- NOTE | 2024-04-19 14:48 | HP ---
HISTORY AND PHYSICAL CHIEF COMPLAINT: Dizziness, near-syncope, and gait insufficiency. HISTORY OF PRESENT ILLNESS: This 73-year-old woman with a past medical history of multiple medical problems, including diabetes, hypertension, supraventricular tachycardia, had multiple workup in [facility]. The patient is complaining of dizziness, near-syncope, and weakness. The patient also had hirsutism features. The patient was admitted for further evaluation and treatment. There is no history of fever, rigors, or chills. The patient's blood sugar was found to be 67 indicating some hypoglycemia. PAST MEDICAL HISTORY: Reviewed include diabetes mellitus, hypertension, supraventricular tachycardia, rest of the history noted. MEDICATIONS: Prednisone 5 mg daily, metformin 500 mg, lisinopril 20 mg daily, Glucotrol 5 mg daily, Norvasc 10 mg daily, and Levaquin 500 mg p.o. daily. ALLERGIES: Penicillin. FAMILY HISTORY: No history of heart disease or strokes in the family. SOCIAL HISTORY: Occasional alcohol. REVIEW OF SYSTEMS: Fourteen-point review is negative. PHYSICAL EXAMINATION: VITAL SIGNS: Pulse is 72, blood pressure 120/60, and respirations 18. HEENT: Conjunctivae normal. NECK: No jugular venous distention. 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 The patient shaves for a long time according to her. CARDIOVASCULAR: S1 and S2. RESPIRATIONS: Clear to auscultation. ABDOMEN: Soft. NERVOUS SYSTEM: Diffusely weak. JOINTS: Deforming arthropathy, rheumatoid. LABORATORY DATA: Noted. Sodium 135. Rest of labs were noted. ASSESSMENT: 1. Weakness, dizziness for evaluation, rule out orthostatic hypotension. 2. Hypoglycemia. 3. Diabetes mellitus, type 2. 4. Hirsutism features. 5. Hyponatremia. 6. AST and ALT elevated. 7. History of hypertension. 8. Supraventricular tachycardia. 9. Polycystic kidney disease. 10.Multiple medical issues. 11.Gait dysfunction. 12.Rheumatoid arthritis. RECOMMENDATION: This 73-year-old woman presented with multiple complex medical issues. We will monitor the patient closely. I recommend orthostatic hypotension, I would recommend to stop the diabetic medications and monitor blood sugars closely. PT, OT evaluation. Orthostatic vitals. Neurology consultation. IV fluids. Also, recommend CT scan of the abdomen, pelvis and chest to rule out the possibility of any hirsutism and serum testosterone will be mentioned including cortisol. Prognosis is extremely guarded because of multiple complex medical issues. Further recommendations to follow. Patient requires more than 2 nights' stay for full admit to evaluate and treat the above- mentioned medical issues for failure of outpatient treatment . Further recommendations to follow. JAKUB / FIORDALIZA: [id number] /
--- NOTE | 2024-04-19 14:50 | PN ---
PROGRESS NOTE DATE OF SERVICE: 04/18/2024 SUBJECTIVE: This is a 73-year-old woman, who was admitted with dizziness and near syncope, had a gait dysfunction also. ECF rehab is being explored. No chest pain. No palpitation. OBJECTIVE: VITAL SIGNS: Pulse is 96, blood pressure 169/74, respirations 16. CHEST: Clear to auscultation. CARDIOVASCULAR: S1, S2. ABDOMEN: Soft. LABORATORY DATA: Reviewed. ASSESSMENT: 1. Gait dysfunction. 2. Dizziness. 3. Diabetes mellitus, type 2. 4. History of supraventricular tachycardia. RECOMMENDATIONS: Recommend to continue current management and continue symptomatic treatment. PT, OT evaluation. Social Work consultation for possible ECF rehab. Recommend repeat labs tomorrow. Further recommendations to follow. MMODL / IJN: [id number] /
--- NOTE | 2024-04-19 15:51 | MR ---
EXAMINATION TYPE: MR brain wo con DATE OF EXAM: 04/19/2024 COMPARISON: None HISTORY: Unsteady gait, near syncope. CONTRAST: Performed utilizing mL intravenous gadolinium contrast. TECHNIQUE: Multiplanar, multiecho imaging on a 3.0 Dana magnet is performed through the brain. Stud y is performed within 24 hours of arrival to the hospital. The craniovertebral junction is normal. The pituitary is normal. Diffusion-weighted imaging is performed. No abnormal hyperintensity is present to suggest an acute i ntracranial infarct or acute ischemic change. There are multiple scattered small areas of hyperintensity on T2 and Inversion Recovery weighted sequ ences which are non-specific but can be related to microvascular ischemic changes. Differential diagn osis would include multiple sclerosis or Lyme disease. Ventricles and sulci are prominent for the patient age. IMPRESSION: 1. Fairly prominent multiple areas of chronic periventricular and deep white matter ischemic type ayo nges with atrophy. 2. No acute intracranial process. [facility], , 04/19/2024 3:49 PM
[2024-04-19 17:03] LABS: Glucose,Whole Blood 154 mg/dL (70-110)
[2024-04-19 20:38] LABS: Glucose,Whole Blood 181 mg/dL (70-110)
[2024-04-19] MEDS: HEPARIN SODIUM,PORCINE 5,000 UNIT/ML 1 ML VIAL SQ SCH (21:05)
[2024-04-20] MEDS ORDERED: SODIUM CHLORIDE 0.9% 1,000 ML BAG ONE (04:00)
[2024-04-20] MEDS ORDERED: ACETAMINOPHEN TAB 325 MG TAB ONE (04:00)
[2024-04-20 06:20] LABS: Glucose,Whole Blood 87 mg/dL (70-110)
[2024-04-20 09:10] VITALS: BP 170/73; PULSE 87; RESP 16; TEMP 97.7
[2024-04-20 11:18] LABS: African American GFR (CKD) >90 (>60 ml/min/1.73 sqM); Anion Gap 8 mmol/L; Blood Urea Nitrogen 12 mg/dL (7-17); Calcium 9.4 mg/dL (8.4-10.2); Carbon Dioxide 21 mmol/L (22-30); Chloride 109 mmol/L (98-107); Glucose 149 mg/dL (74-99); Non-African American GFR(CKD) >90 (>60 ml/min/1.73 sqM); Sodium 138 mmol/L (137-145)
[2024-04-20 11:19] LABS: Potassium 3.6 mmol/L (3.5-5.1)
--- NOTE | 2024-04-20 11:24 | CA ---
Transthoracic Echo Report Name: Mae Oreilly Age: 73 Gender: F : 1950 Exam Date: 04/18/2024 09:29 Exam Location: [facility] Ht (in): 55 Wt (lb): 145 Ordering Physician: Evelyn Hugo MD Attending/Referring Phys: Quality Assurance Nurse Adela Ibrahim RDCS Procedure CPT: Indications: chf Cardiac Hx: Technical Quality: Fair Contrast 1: Total Dose (mL): Contrast 2: Total Dose (mL): MEASUREMENTS (Male / Female) Normal Values 2D ECHO LV Diastolic Diameter PLAX 1.5 cm 4.2 - 5.9 / 3.9 - 5.3 cm LV Systolic Diameter PLAX 1.9 cm IVS Diastolic Thickness 1.5 cm 0.6 - 1.0 / 0.6 - 0.9 cm LVPW Diastolic Thickness 3.2 cm 0.6 - 1.0 / 0.6 - 0.9 cm LV Relative Wall Thickness 3.2 RV Internal Dim ED PLAX 3.0 cm LA Volume 45.7 cm??? 18 - 58 / 22 - 52 cm??? LA Volume Index 28.0 cm???/m??? 16 - 28 cm???/m??? M-MODE Aortic Root Diameter MM 2.9 cm LA Systolic Diameter MM 4.2 cm LA Ao Ratio MM 1.5 AV Cusp Separation MM 2.0 cm DOPPLER AV Peak Velocity 151.7 cm/s AV Peak Gradient 9.2 mmHg AV Mean Velocity 105.5 cm/s AV Mean Gradient 5.0 mmHg AV Velocity Time Integral 30.5 cm LVOT Peak Velocity 137.0 cm/s LVOT Peak Gradient 7.5 mmHg LVOT Velocity Time Integral 29.3 cm MV Area PHT 2.6 cm??? Mitral E Point Velocity 75.2 cm/s Mitral A Point Velocity 120.9 cm/s Mitral E to A Ratio 0.6 MV Deceleration Time 290.9 ms MV E' Velocity 6.1 cm/s Mitral E to MV E' Ratio 12.2 FINDINGS Left Ventricle Moderately increased left ventricular wall thickness. Normal left ventricular systolic function with no obvious regional wall motion abnormalities. Left ventricular cavity size normal. Left ventricular ejection fraction is estimated at 55-60 %. Grade 1 diastolic dysfunction. Right Ventricle Normal right ventricular size and function. Right ventricular systolic pressure within normal limits. Right Atrium Normal right atrial size. Left Atrium Normal left atrial size. Mitral Valve Structurally normal mitral valve. Mitral valve thickened. Mild mitral annular calcification. Mild mitral regurgitation. Aortic Valve Trileaflet aortic valve. No aortic valve stenosis or regurgitation. Tricuspid Valve Structurally normal tricuspid valve. Mild tricuspid regurgitation. Pulmonic Valve Structurally normal pulmonic valve. Pericardium No pericardial effusion. Aorta Normal size aortic root and proximal ascending aorta. CONCLUSIONS Diagnosis: Congestive heart failure Left ventricular hypertrophy with preserved systolic function Normal RV size and function No significant valvular abnormalities Previewed by: Dr. Eugenio Carranza MD (Electronically Signed) Final Date: 20 April 2024 11:23
[2024-04-20 11:53] LABS: Glucose,Whole Blood 105 mg/dL (70-110)
--- NOTE | 2024-04-20 13:38 | P.DS ---
Providers Date of admission: 04/17/24 05:46 Attending physician: Evelyn Hugo Consults: 04/17/24 13:51 Consult Physician Routine Consulting Provider: Manuel Raphael Consult Reason/Comments: weakness Do you want consulting provider notified?: Yes Primary care physician: Solitario Lewis [facility] Course: Final Diagnosis Near syncope likely dehydrational with positive orthostatics Gait dysfunction and chronic medical debility Hypovolemic hyponatremia improving with IV fluids Mild acute kidney injury, prerenal secondary to dehydration; BUN of 21 on admission has since normalized with IV fluids Hypokalemia Diabetes mellitus type II hemoglobin A1c of 6.7; hypoglycemic on admission Diabetic neuropathy Hypertension maintained on lisinopril and amlodipine Supraventricular tachycardia; hx currently in normal sinus rhythm Polycystic Kidney Disease Rheumatoid arthritis maintained on daily prednisone Discharge Disposition Patient is stable for discharge to subacute rehab. Follows up include with her known neurologist as well as ENT. Repeat blood work in 2 to 3 days. Continue to monitor blood glucose. Hospital Course This is a 73-year-old woman with history of diabetes mellitus, hypertension, rheumatoid arthritis states she is having ongoing dizziness and generalized weakness for prolonged period time. Patient reports feeling dizzy mostly while ambulating. Patient also reports some difficulty ambulating in the last 2 to 3 months having to use a walker and requiring assistance from her family to use the bathroom. Patient also has some shortness of breath while ambulating. Denies falls, not having any focal weakness. Her brother is having a hard time caring for her due to her weakness. She presents for evaluation. Neurology was consulted. Orthostatic vitals as supine blood pressure is 154/63 heart rate of 70, sitting is 159/63 with a heart rate of 90 and standing is 138/62 with a heart rate of 103. There is a drop of 20 systolic blood pressure from sitting to standing. CT head: Reported as age-related atrophy and chronic small vessel ischemic changes without acute intracranial process seen at this time. Carotid duplex is reported as scattered area of intimal thickening without significant flow-limiting stenosis. Echocardiogram reveals normal ejection fraction 55 to 60% with a grade 1 diastolic dysfunction left ventricular hypertrophy. Brain MRI reveals prominent multiple areas of chronic periventricular and deep white matter ischemic type changes with atrophy. No acute intracranial process. Differential diagnosis includes multiple sclerosis or Lyme disease. Blood work on admission reveals a sodium level of 135, BUN of 21, creatinine of 0.79. Her magnesium level was 1.7. AST and ALT are mildly elevated with an AST of 42 and an ALT of 36, troponin level was negative. B12 and folate are within normal limits her TSH is 1.040. Patient had an initial blood sugar of 267. There was also concern for hirsutism her testosterone and cortisol levels are within normal limits. She additionally had an abdominal pelvis CT done Which reveals nonspecific wall thickening of the right hemicolon could reflect nonspecific colitis. Patient also has a small pericardial effusion however was not evident on the echocardiogram. Was hydrated and her sodium level normalized as well as her renal function. She was evaluated by neurology and has followed with a neurologist outpatient in the past. Patient should also see an ENT for further evaluation of the dizziness per neuro recommendations. Patient was mildly dehydrated on admission with mild YARITZA and also hypoglycemic. With hydration her orthostatic vitals are now negative and her sodium and renal function have normalized. Could also be a componenent of peripheral neuropathy. She states the dizziness is somewhat better. She is discharged to subacute rehab. Please see medication reconciliation for a list of current medications. Thank you for allowing us to participate in the care of this patient. The impression and plan of care has been dictated by Jessie Juárez Nurse Practitioner as directed. Dr. Annika MD I have performed a history and physical examination and medical decision making of this patient, discussed the same with the dictator, and agree with the dictators assessment and plan as written, documented as a scribe. Based on total visit time, I have performed more than 50% of this visit. Patient Condition at Discharge: Stable Plan - Discharge Summary Discharge Rx Participant: No New Discharge Prescriptions: New Pantoprazole [Protonix] 40 mg PO DAILY tab Heparin Sodium,Porcine (1 ml) [Heparin Sodium] 5,000 unit SQ Q12HR each amLODIPine [Norvasc] 5 mg PO DAILY tab Continue predniSONE 5 mg PO DAILY metFORMIN HCL [Glucophage] 500 mg PO AC-SUPPER lisinopriL [Zestril] 20 mg PO DAILY Discontinued glipiZIDE [Glucotrol XL] 5 mg PO DAILY amLODIPine [Norvasc] 10 mg PO DAILY Levofloxacin [Levaquin] 500 mg PO DAILY Discharge Medication List metFORMIN HCL [Glucophage] 500 mg PO AC-SUPPER 11/26/13 [History] predniSONE 5 mg PO DAILY 11/26/13 [History] lisinopriL [Zestril] 20 mg PO DAILY 04/17/24 [History] Heparin Sodium,Porcine (1 ml) [Heparin Sodium] 5,000 unit SQ Q12HR each 04/20/24 [Rx] Pantoprazole [Protonix] 40 mg PO DAILY tab 04/20/24 [Rx] amLODIPine [Norvasc] 5 mg PO DAILY tab 04/20/24 [Rx] Follow up Appointment(s)/Referral(s): Solitario Lewis MD [Primary Care Provider] - 1-2 days Ambulatory/Diagnostic Orders: Basic Metabolic Panel [LAB.AMB] Time Frame: 3 Days, Location: None Selected Discharge Disposition: TRANSFER TO SNF/ECF
--- NOTE | 2024-04-20 14:16 | P.PN ---
Subjective Progress Note Date: 04/20/24 I am following-up with patient and she feels she is doing better overall. Denies of any new neurological issues. Objective - Vital Signs Vital signs: Vital Signs Temp 97.7 F 04/20/24 07:25 Pulse 87 04/20/24 07:25 Resp 16 04/20/24 07:25 BP 170/73 04/20/24 07:25 Pulse Ox 95 04/20/24 07:25 FiO2 Intake & Output 04/19/24 04/20/24 04/20/24 18:59 06:59 18:59 Intake Total 100 Balance 100 Intake: Oral 100 Other: Voiding Method Bedside Commode # Voids 1 2 1 - Exam GENERAL: The patient is lying in bed and is not in acute distress. Musculoskeletal: Moderate to significant rheumatoid arthritis joint deformity in the hands and feet. Patient does have calluses in the bottom of the feet. NEUROLOGICAL: Higher mental function: The patient is awake, alert, oriented to self, place and time. Patient is following commands. No aphasia and no neglect. Cranial nerves: The pupils are round, equal and reactive to light and accommodation. Visual walsh are full to confrontation throughout. Extraocular movement is intact no nystagmus is noted. Facial sensation is normal to touch throughout. The facial strength is normal throughout. Hearing is moderately decreased bilaterally to hand rub. Tongue is midline and moved [id number] wi thout any difficulty. No dysarthria is noted. Shoulder shrug is normal bilaterally. Motor: The strength is limited in individual muscle strength because of her cooperation but has at least 5- throughout. Normal tone and bulk. Cerebellum: Normal finger to nose bilaterally. Sensation: Sensation is normal to touch throughout. Reflexes (right/left): 2+ throughout except ankles are 1+. Plantars are mute bilaterally. Some of the workup during this hospital visit consisted of: Repeat orthostatic is negative. Vitamin B12 is 457 Serum folate is 16.20 Hemoglobin A1c is 6.7 TSH is 1.040 Ammonia is less than 9 CK Level is [address] head: Reported as age-related atrophy and chronic small vessel ischemic changes without acute intracranial process seen at this time. I personally reviewed the CT and I agree there is no acute or subacute ischemic process Carotid duplex is reported as scattered area of intimal thickening without significant flow-limiting stenosis MRI Brain: Fairly prominent multiple area of chronic periventricular and deep white matter ischemic type changes with atrophy. No acute intracranial process. 2D echo: Left ventricular hypertrophy with preserved systolic function. Normal right ventricular size and function. No significant valvular abnormality. - Labs CBC & Chem 7: 04/19/24 05:59 04/20/24 10:33 Labs: Abnormal Lab Results - Last 24 Hours (Table) 04/19/24 04/19/24 04/20/24 Range/Units 17:01 20:36 10:33 Chloride 109 H (98-107) mmol/L Carbon Dioxide 21 L (22-30) mmol/L Glucose 149 H (74-99) mg/dL POC Glucose (mg/dL) 154 H 181 H (70-110) mg/dL Assessment and Plan Assessment: This is a 73-year-old woman with chronic ongoing diabetes mellitus for 25 years, rheumatoid arthritis, hypertension who presents because of dizziness/lightheadedness for at least 1 year, generalized weakness for at least 2 to 3-month and she stated she had MRI of the brain in December 2023 was unremarkable and followed up with a neurologist as an outpatient and unknown reason for her dizziness. She lives with her brother and needs placement. She usually uses a walker Patient symptoms of lightheadedness/dizziness with generalized weakness: Unknown exact etiology but I would state multifactorial due to her chronic diabetes mellitus for at least 25 years in addition to rheumatoid arthritis likely she has peripheral neuropathy because of her chronic ongoing diabetes mellitus. Her repeat orthostatic vitals are negative. MRI Brain is negative for acute or subacute process. Ongoing chronic diabetes mellitus Hypertension Rheumatoid arthritis Plan: PT and OT are consulted Recommend ENT evaluation as an outpatient Will defer the rest of the medical management to primary and other specialist There is no further neurological work-up. Will sign off. Please reconsult if needed. Time with Patient: Less than 30
== END 2024-04-20 15:06 | DRG 641 ==
LOC: EC 02:58 → 6NMEDSUR 05:45 → OBSVTOIN 05:46 → 6NMEDSUR 09:18 → 1SOBS 10:16 → 4SSUR 04-19 16:41
PROVIDERS: ADMIT Hospitalist; ATTEND Hospitalist
DX: E86.0 Dehydration (principal); I31.39 Other pericardial effusion (noninflammatory); N17.9 Acute kidney failure, unspecified; Q61.3 Polycystic kidney, unspecified; I47.10 Supraventricular tachycardia, unspecified; E11.649 Type 2 diabetes mellitus with hypoglycemia without coma; E11.42 Type 2 diabetes mellitus with diabetic polyneuropathy; M06.9 Rheumatoid arthritis, unspecified; Z66 Do not resuscitate; I11.9 Hypertensive heart disease without heart failure; E86.1 Hypovolemia; E87.1 Hypo-osmolality and hyponatremia; E87.6 Hypokalemia; L84 Corns and callosities; L68.0 Hirsutism; L64.9 Androgenic alopecia, unspecified; R26.2 Difficulty in walking, not elsewhere classified; R53.81 Other malaise; Z87.891 Personal history of nicotine dependence; Z79.84 Long term (current) use of oral hypoglycemic drugs; Z79.899 Other long term (current) drug therapy; Z79.52 Long term (current) use of systemic steroids
CPT/HCPCS: 36415; 70450; 70551; 71045; 71250; 74176; 80048; 80053; 81001; 82140; 82533; 82550; 82607; 82746; 83036; 83735; 84403; 84443; 84484; 85025; 85610; 85730; 93005; 93306; 93880; 99285

== ENCOUNTER 2024-06-25 15:48 | Emergency (ER) | payer MEDICARE ==
--- NOTE | 2024-06-25 16:44 | ED ---
General Adult HPI - General Chief complaint: Psychiatric Symptoms Stated complaint: AMS Time Seen by Provider: 06/25/24 16:18 Source: patient Mode of arrival: ambulatory Limitations: no limitations - History of Present Illness Initial comments: Dictation was produced using [employer] dictation software. please excuse any grammatical, word or spelling errors. Chief Complaint: 73-year-old female presents to the emergency department for suicidal ideation and suicidal attempt History of Present Illness: Patient 73-year-old female she has past medical hist ory of diabetes, hypertension SVT. Patient sent here by outpatient physicians for suicidal attempt and depression. Patient has been having confusion for last 5 to 6 months. Patient states that she tried to kill himself. She put a string around her neck however did not hang herself because her brothers prevented her from doing so. Patient states that she is depressed because she is unable to f unction like she normally was able to when she was younger. Patient Nuys any medical plaints at this time. Suicidal attempt was approximately 1 week ago according to brothers at the bedside The ROS documented in this emergency department record has been reviewed and confirmed by me. Those systems with pertinent positive or negative responses have been documented in the HPI. All other systems are other negative and/or noncontributory. - Related Data Home Medications Medication Instructions Recorded Confirmed metFORMIN HCL [Glucophage] 500 mg PO AC-SUPPER 11/26/13 06/25/24 predniSONE 5 mg PO DAILY 11/26/13 06/25/24 lisinopriL [Zestril] 20 mg PO DAILY 04/17/24 06/25/24 Docusate Sodium 100 mg PO BID PRN 06/25/24 06/25/24 Sertraline [Zoloft] 25 mg PO DAILY 06/25/24 06/25/24 amLODIPine [Norvasc] 10 mg PO DAILY 06/25/24 06/25/24 glipiZIDE XL [Glucotrol Xl] 5 mg PO DAILY 06/25/24 06/25/24 hydrOXYzine HCL [Atarax] 10 mg PO Q8H PRN 06/25/24 06/25/24 Previous Rx's Medication Instructions Recorded Pantoprazole [Protonix] 40 mg PO DAILY tab 04/20/24 Allergies Allergy/AdvReac Type Severity Reaction Status Date / Time Penicillins Allergy Rash/Hives Verified 06/25/24 15:53 Review of Systems ROS Statement: Those systems with pertinent positive or pertinent negative responses have been documented in the HPI. ROS Other: All systems not noted in ROS Statement are negative. Past Medical History Past Medical History: Diabetes Mellitus, Hypertension, Supraventricular Tachycardia (SVT) Additional Past Medical History / Comment(s): L and R breast biopsy, dentures, arthritis, pain legs and hands History of Any Multi-Drug Resistant Organisms: None Reported Past Surgical History: Cholecystectomy Additional Past Surgical History / Comment(s): L and R foot surgery Past Anesthesia/Blood Transfusion Reactions: No Reported Reaction Past Psychological History: No Psychological Hx Reported Smoking Status: Former smoker Past Alcohol Use History: Occasional Past Drug Use History: None Reported General Exam - General Exam Comments Initial Comments: PHYSICAL EXAM: General Impression: Alert and oriented x3, not in acute distress HEENT: Normocephalic atraumatic, extra-ocular movements intact, pupils equal and reactive to light bilaterally, mucous membranes moist, no neck ligature pascual Cardiovascular: Heart regular rate and rhythm Chest: Able to complete full sentences, no retractions, no tachypnea Abdomen: abdomen soft, non-tender, non-distended, no organomegaly Musculoskeletal: Pulses present and equal in all extremities, no peripheral edema Motor: no focal deficits noted Neurological: CN II-XII grossly intact, no focal motor or sensory deficits noted Skin: Intact with no visualized rashes Psych: Normal affect and mood Limitations: no limitations Course Vital Signs 06/25/24 06/25/24 15:50 19:25 Temperature 98 F 98.4 F Pulse Rate 78 89 Respiratory 18 20 Rate Blood Pressure 140/63 99/75 O2 Sat by Pulse 100 100 Oximetry EKG Findings - EKG Comments: EKG Findings:: My EKG interpretation: Ventricular rate 75, sinus rhythm. UT interval 142, QRS 79, QTc 4 3 no UT prolongation, no QTC prolongation, no ST or T-wave changes noted. Overall, this EKG is unremarkable Medical Decision Making - Medical Decision Making Was pt. sent in by a medical professional or institution (, PA, DYE BLENDER, urgent care, hospital, or custodial...) When possible be specific @ -No Did you speak to anyone other than the patient for history (EMS, parent, family, police, friend...)? What history was obtained from this source @ -No Did you review nursing and triage notes (agree or disagree)? Why? @ -I reviewed and agree with nursing and triage notes Were old charts reviewed (outside hosp., previous admission, EMS record, old EKG, old radiological studies, urgent care reports/EKG's, custodial records)? Report findings @ -No old charts were reviewed Differential Diagnosis (chest pain, altered mental status, abdominal pain women, abdominal pain men, vaginal bleeding, musculoskeletal, weakness, fever, dyspnea, syncope, headache, dizziness, GI bleed, back pain, seizure, CVA, palpatations, mental health)? @ -Differential Mental Health: Depression, anxiety, bipolar, psychosis, schizophrenia, borderline personality, situational depression, adjustment disorder, behavioral disorder, brain tumor, malingering, substance abuse, encephalopathy, medication reaction, dementia, hypothyroidism, degenerative neurologic disorder, lupus.... This is not meant to be all-inclusive list EKG interpreted by me (3pts min.). @ -None done X-rays interpreted by me (1pt min.). @ -None done CT interpreted by me (1pt min.). @ -None done U/S interpreted by me (1pt. min.). @ -None done What testing was considered but not performed or refused? (CT, X-rays, U/S, labs)? Why? @ -None What meds were considered but not given or refused? Why? @ -None Was smoking cessation discussed for >3mins.? @ -No Were there social determinants of health that impacted care today? How? (Homelessness, low income, unemployed, alcoholism, drug addiction, transportation, low edu. Level, literacy, decrease access to med. care, halfway, rehab)? @ -No Was there de-escalation of care discussed even if they declined (Discuss DNR or withdrawal of care, Hospice)? DNR status @ -No What co-morbidities impacted this encounter? (DM, HTN, Smoking, COPD, CAD, Canc er, CVA, ARF, Chemo, Hep., AIDS, mental health diagnosis, sleep apnea, morbid obesity)? @ -None Was patient admitted / discharged? Hospital course, mention meds given and route, prescriptions, significant lab abnormalities, going to OR and other pertinent info. @ -73-year-old female presents to the emergency department for psychiatric evaluation. She had a suicidal attempt 1 week ago. She does not have any external signs of trauma. She is well-appearing no acute distress. Vital signs upon arrival are within acceptable limits. Given patient's age blood work, EKG and urine studies will be performed prior to medical clearance.Laboratory evaluation obtained. Labs unremarkable. CT brain is negative. Patient medically cleared for EPS evaluation. EPS evaluated patient recommended geriatric psych transfer. Did you discuss the management of the patient with other professionals (professionals i.e. , PA, DYE BLENDER, lab, RT, psych nurse, director social, head of measurement & insights, teacher, property and supply officer, vocational case manager)? Give summary @ -No Was critical care preformed (if so, how long)? @ -No Undiagnosed new problem with uncertain prognosis? @ -No Drug Therapy requiring intensive monitoring for toxicity (Heparin, Nitro, Insulin, Cardizem)? @ -No Were any procedures done? @ -No Diagnosis/symptom? Acute, or Chronic, or Acute on Chronic? Uncomplicated (without systemic symptoms) or Complicated (systemic symptoms)? @ -Suicidal ideation Side effects of treatment? @ -No Exacerbation, Progression, or Severe Exacerbation? @ -No Poses a threat to life or bodily function? How? (Chest pain, USA, IA, pneumonia, PE, COPD, DKA, ARF, appy, cholecystitis, CVA, Diverticulitis, Homicidal, Suicidal, threat to staff... and all critical care pts) @ -yes Clinical certification completed. - Lab Data Result diagrams: 06/25/24 17:46 06/25/24 17:46 Lab Results 06/25/24 06/25/24 06/25/24 Range/Units 16:32 17:46 17:46 WBC 6.3 (3.8-10.6) k/uL RBC 4.63 (3.80-5.40) m/uL Hgb 10.3 L (11.4-16.0) gm/dL Hct 33.2 L (34.0-46.0) % MCV 71.6 L (80.0-100.0) fL MCH 22.2 L (25.0-35.0) pg MCHC 31.0 (31.0-37.0) g/dL RDW 16.5 H (11.5-15.5) % Plt Count 279 (150-450) k/uL MPV 6.8 Neutrophils % 54 % Lymphocytes % 30 % Monocytes % 10 % Eosinophils % 3 % Basophils % 0 % Neutrophils # 3.4 (1.3-7.7) k/uL Lymphocytes # 1.9 (1.0-4.8) k/uL Monocytes # 0.6 (0-1.0) k/uL Eosinophils # 0.2 (0-0.7) k/uL Basophils # 0.0 (0-0.2) k/uL Hypochromasia Marked Anisocytosis Slight Microcytosis Moderate Sodium (137-145) mmol/L Potassium (3.5-5.1) mmol/L Chloride (98-107) mmol/L Carbon Dioxide (22-30) mmol/L Anion Gap mmol/L BUN (7-17) mg/dL Creatinine (0.52-1.04) mg/dL Est GFR (CKD-EPI)AfAm (>60 ml/min/1.73 sqM) Est GFR (CKD-EPI)NonAf (>60 ml/min/1.73 sqM) Glucose (74-99) mg/dL Calcium (8.4-10.2) mg/dL Urine Color Light Yellow Urine Appearance Cloudy H (Clear) Urine pH 6.5 (5.0-8.0) Ur Specific [place] 1.018 (1.001-1.035) Urine Protein Trace H (Negative) Urine Glucose (UA) Negative (Negative) Urine Ketones Negative (Negative) Urine Blood Negative (Negative) Urine Nitrite Negative (Negative) Urine Bilirubin Negative (Negative) Urine Urobilinogen <2.0 (<2.0) mg/dL Ur Leukocyte Esterase Moderate H (Negative) Urine RBC 2 (0-5) /hpf Urine WBC 6 H (0-5) /hpf Ur Squamous Epith Cells 6 H (0-4) /hpf Urine Mucus Rare H (None) /hpf Influenza Type A (PCR) Not Detected (Not Detectd) Influenza Type B (PCR) Not Detected (Not Detectd) RSV (PCR) Not Detected (Not Detectd) SARS-CoV-2 (PCR) Not Detected (Not Detectd) 06/25/24 Range/Units 17:46 WBC (3.8-10.6) k/uL RBC (3.80-5.40) m/uL Hgb (11.4-16.0) gm/dL Hct (34.0-46.0) % MCV (80.0-100.0) fL MCH (25.0-35.0) pg MCHC (31.0-37.0) g/dL RDW (11.5-15.5) % Plt Count (150-450) k/uL MPV Neutrophils % % Lymphocytes % % Monocytes % % Eosinophils % % Basophils % % Neutrophils # (1.3-7.7) k/uL Lymphocytes # (1.0-4.8) k/uL Monocytes # (0-1.0) k/uL Eosinophils # (0-0.7) k/uL Basophils # (0-0.2) k/uL Hypochromasia Anisocytosis Microcytosis Sodium 135 L (137-145) mmol/L Potassium 3.9 (3.5-5.1) mmol/L Chloride 105 (98-107) mmol/L Carbon Dioxide 24 (22-30) mmol/L Anion Gap 6 mmol/L BUN 28 H (7-17) mg/dL Creatinine 0.81 (0.52-1.04) mg/dL Est GFR (CKD-EPI)AfAm 83 (>60 ml/min/1.73 sqM) Est GFR (CKD-EPI)NonAf 72 (>60 ml/min/1.73 sqM) Glucose 82 (74-99) mg/dL Calcium 9.4 (8.4-10.2) mg/dL Urine Color Urine Appearance (Clear) Urine pH (5.0-8.0) Ur Specific [place] (1.001-1.035) Urine Protein (Negative) Urine Glucose (UA) (Negative) Urine Ketones (Negative) Urine Blood (Negative) Urine Nitrite (Negative) Urine Bilirubin (Negative) Urine Urobilinogen (<2.0) mg/dL Ur Leukocyte Esterase (Negative) Urine RBC (0-5) /hpf Urine WBC (0-5) /hpf Ur Squamous Epith Cells (0-4) /hpf Urine Mucus (None) /hpf Influenza Type A (PCR) (Not Detectd) Influenza Type B (PCR) (Not Detectd) RSV (PCR) (Not Detectd) SARS-CoV-2 (PCR) (Not Detectd) Disposition Clinical Impression: Attempted suicide, Suicidal ideation Disposition: TRANSFER TO PSYCH HOSP/UNIT Condition: Fair Referrals: Solitario Lewis MD [Primary Care Provider] - 1-2 days Time of Disposition: 20:58
--- NOTE | 2024-06-25 18:44 | CT ---
EXAMINATION TYPE: CT brain wo con DATE OF EXAM: 06/25/2024 6:29 PM COMPARISON: 04/17/2024, 04/19/2024. CLINICAL INDICATION: Female, 73 years old with history of geriatric depression/ams, ams, suicidal yanira ation TECHNIQUE: Brain: Axial CT images of the brain were obtained with coronal and sagittal reformats created and rev iewed. Contrast used: None. Oral contrast used: None. CT DLP: 1139.4 mGycm, Automated exposure control for dose reduction was used. FINDINGS: Motion limited exam Brain: Extra-axial spaces: No abnormal extra-axial fluid collections. Ventricular system: Within normal limits Cerebral parenchyma: No acute intraparenchymal hemorrhage or mass effect. Age indeterminate area wit hin the left parietal/occipital region of jennings-white matter loss of differentiation. The remainder of the ejnnings-white junctions are well differentiated. Cerebellum: Unremarkable. Mass effect: No evidence of midline shift. Intracranial vasculature: Atherosclerotic calcifications of the intracranial vessels. Soft tissues: Normal. Calvarium/osseous structures: No depressed skull fracture. Paranasal sinuses and mastoid air cells: Mild scattered paranasal sinus disease. Visualized orbits: Orbital contents are intact. IMPRESSION: 1. Motion limited exam age-indeterminate left parietal area of jennings-white matter loss of differentiat ion new from 04/17/2024 for evaluation recommended with MRI to rule out ischemia 2. Nonspecific white matter changes, likely secondary to chronic small vessel ischemic disease. [facility], , 06/25/2024 6:42 PM
[2024-06-25 18:56] LABS: Appearance,Urine Cloudy (Clear); Bilirubin,Urine Negative (Negative); Blood,Urine Negative (Negative); Color,Urine Light Yellow; Glucose,Urine (UA) Negative (Negative); Ketones,Urine Negative (Negative); Leukocyte Esterase,Urine Moderate (Negative); Mucus,Urine Rare /hpf; Nitrite,Urine Negative (Negative); PH, Urine 6.5 (5.0-8.0); Protein,Urine Trace (Negative); RBC,Urine 2 /hpf (0-5); Specific Gravity,Urine 1.018 (1.001-1.035); Squamous Epithelial Cell,Urine 6 /hpf (0-4); Urobilinogen,Urine <2.0 mg/dL (<2.0); WBC,Urine 6 /hpf (0-5)
[2024-06-25 19:02] LABS: Anisocytosis Slight; Basophils % (A) 0 %; Eosinophils # (A) 0.2 k/uL (0-0.7); Eosinophils % (A) 3 %; HCT 33.2 % (34.0-46.0); HGB 10.3 gm/dL (11.4-16.0); Hypochromasia Marked; Lymphocytes # (A) 1.9 k/uL (1.0-4.8); Lymphocytes % (A) 30 %; MCH 22.2 pg (25.0-35.0); MCV 71.6 fL (80.0-100.0); Mean Platelet Volume 6.8; Microcytosis Moderate; Monocytes # (A) 0.6 k/uL (0-1.0); Monocytes % (A) 10 %; Neutrophils # (A) 3.4 k/uL (1.3-7.7); Neutrophils % (A) 54 %; Platelet Count 279 k/uL (150-450); RBC 4.63 m/uL (3.80-5.40); RDW 16.5 % (11.5-15.5); WBC 6.3 k/uL (3.8-10.6)
[2024-06-25 19:18] LABS: African American GFR (CKD) 83 (>60 ml/min/1.73 sqM); Anion Gap 6 mmol/L; Blood Urea Nitrogen 28 mg/dL (7-17); Calcium 9.4 mg/dL (8.4-10.2); Carbon Dioxide 24 mmol/L (22-30); Chloride 105 mmol/L (98-107); Glucose 82 mg/dL (74-99); Non-African American GFR(CKD) 72 (>60 ml/min/1.73 sqM); Potassium 3.9 mmol/L (3.5-5.1); Sodium 135 mmol/L (137-145)
[2024-06-25] MEDS: ALPRAZolam 0.5 MG TAB PO STA (21:26)
[2024-06-26 08:07] VITALS: PULSE 65; TEMP 98
[2024-06-26 10:29] VITALS: BP 120/75; RESP 20
== END 2024-06-26 11:32 ==
LOC: EC 15:48
DX: R45.851 Suicidal ideations (principal); E11.9 Type 2 diabetes mellitus without complications; I10 Essential (primary) hypertension; Z87.891 Personal history of nicotine dependence; Z88.0 Allergy status to penicillin; Z11.52 Encounter for screening for COVID-19
CPT/HCPCS: 36415; 70450; 80048; 81001; 82075; 85025; 87636; 93005; 99285